=== PATIENT | female | born 1955 | race Caucasian/White ===

== ENCOUNTER 2016-06-09 09:59 | Outpatient (CLI) | payer MEDICAID | END 2016-06-09 10:00 | disposition home or self-care (01) | DX: Z71.3 Dietary counseling and surveillance (principal); E11.9 Type 2 diabetes mellitus without complications; E66.09 Other obesity due to excess calories; Z68.38 Body mass index [BMI] 38.0-38.9, adult ==

== ENCOUNTER 2016-06-20 19:53 | Outpatient (CLI) | payer MEDICAID ==
[2016-06-20 13:50] LABS: CHOL/HDL RATIO 2.9 (<4.4); CHOLESTEROL 134 mg/dL; HDL CHOLESTEROL 47 mg/dL; LDL/HDL RATIO 1.4 (<4.4); TRIGLYCERIDES 97 mg/dL; VLDL CHOLESTEROL 19 mg/dL
== END 2016-06-20 19:54 | disposition home or self-care (01) ==
LOC: LAB.WCP 19:53
PROVIDERS: ATTEND Internal Medicine Cardiovascular Disease
DX: E78.1 Pure hyperglyceridemia (principal); E55.9 Vitamin D deficiency, unspecified; E11.9 Type 2 diabetes mellitus without complications
CPT/HCPCS: 36415; 80061; 82306

== ENCOUNTER 2016-06-24 16:22 | Outpatient (CLI) | payer MEDICAID | END 2016-06-24 16:23 | disposition home or self-care (01) | DX: M16.11 Unilateral primary osteoarthritis, right hip (principal); Z91.81 History of falling ==

== ENCOUNTER 2016-06-27 13:17 | Emergency (ER) | payer MEDICAID ==
[2016-06-27] MEDS ORDERED: CHERRY SYRUP 10 ML UDC PO ONE (13:28)
[2016-06-27] MEDS ORDERED: DEXAMETHASONE 10 MG/ML VIAL ONE (13:28)
[2016-06-27] MEDS ORDERED: HYDROcod/ACETAM 5/325 MG TABLET PO STA (15:14)
[2016-06-27] MEDS ORDERED: HYDROcod/ACETAM 5/325 MG TABLET ONE (15:17)
== END 2016-06-27 15:19 | disposition home or self-care (01) ==
DX: M25.551 Pain in right hip (principal); W01.0XXA Fall on same level from slipping, tripping and stumbling without subsequent striking against object, initial encounter; M16.11 Unilateral primary osteoarthritis, right hip; M19.90 Unspecified osteoarthritis, unspecified site; K57.30 Diverticulosis of large intestine without perforation or abscess without bleeding; I11.0 Hypertensive heart disease with heart failure; I50.9 Heart failure, unspecified; E78.00 Pure hypercholesterolemia, unspecified; J44.9 Chronic obstructive pulmonary disease, unspecified; E11.9 Type 2 diabetes mellitus without complications; Z79.4 Long term (current) use of insulin; F17.200 Nicotine dependence, unspecified, uncomplicated
CPT/HCPCS: 73700; 99283; A9270

== ENCOUNTER 2016-07-30 15:12 | Outpatient (CLI) | payer MEDICAID | END 2016-07-30 15:13 | disposition critical access hospital (66) | DX: K08.89 Other specified disorders of teeth and supporting structures (principal) | CPT/HCPCS: A0425; A0429 ==

== ENCOUNTER 2016-07-30 15:30 | Emergency (ER) | payer MEDICAID | END 2016-07-30 16:02 | disposition home or self-care (01) | DX: K04.7 Periapical abscess without sinus (principal); K02.9 Dental caries, unspecified; I11.0 Hypertensive heart disease with heart failure; I50.9 Heart failure, unspecified; E11.9 Type 2 diabetes mellitus without complications; Z79.4 Long term (current) use of insulin; J44.9 Chronic obstructive pulmonary disease, unspecified; F17.200 Nicotine dependence, unspecified, uncomplicated ==

== ENCOUNTER 2016-09-05 09:32 | Outpatient (CLI) | payer MEDICAID | END 2016-09-05 09:33 | disposition home or self-care (01) | DX: E66.9 Obesity, unspecified (principal); E11.9 Type 2 diabetes mellitus without complications ==

== ENCOUNTER 2016-09-22 10:59 | Outpatient (CLI) | payer MEDICAID | END 2016-09-22 11:00 | disposition short-term general hospital (02) | DX: M25.551 Pain in right hip (principal); W06.XXXA Fall from bed, initial encounter; Y92.032 Bedroom in apartment as the place of occurrence of the external cause | CPT/HCPCS: A0425; A0429; A0888 ==

== ENCOUNTER 2016-11-11 14:23 | Outpatient (CLI) | payer MEDICAID ==
[2016-11-11 19:55] LABS: CALCIUM 9.3 mg/dL (8.5-10.3); CREATININE 0.7 mg/dL (0.4-1.0); POTASSIUM 3.6 mmol/L (3.5-5.0)
== END 2016-11-11 14:24 | disposition home or self-care (01) ==
LOC: LAB.N 14:23
PROVIDERS: ATTEND Family Medicine
DX: E11.65 Type 2 diabetes mellitus with hyperglycemia (principal)
CPT/HCPCS: 36415; 80048

== ENCOUNTER 2016-11-15 14:17 | Outpatient (CLI) | payer MEDICAID | END 2016-11-15 14:18 | disposition home or self-care (01) | LOC: SC 14:17 | PROVIDERS: ATTEND Specialist | DX: G47.8 Other sleep disorders (principal); R53.83 Other fatigue; R06.83 Snoring | CPT/HCPCS: 99205; 99212 ==

== ENCOUNTER 2016-12-07 09:03 | Outpatient (CLI) | payer MEDICAID ==
[2016-12-07 13:42] LABS: HEMOGLOBIN A1C 1.06 g/dL
== END 2016-12-07 09:04 ==
LOC: LAB.N 09:03
PROVIDERS: ATTEND Family Medicine
DX: E11.65 Type 2 diabetes mellitus with hyperglycemia (principal); Z79.4 Long term (current) use of insulin
CPT/HCPCS: 36415; 83036

== ENCOUNTER 2016-12-08 21:30 | Outpatient (CLI) | payer MEDICAID | END 2016-12-08 21:31 | disposition home or self-care (01) | LOC: SC 21:30 | PROVIDERS: ATTEND Specialist | DX: G47.33 Obstructive sleep apnea (adult) (pediatric) (principal); G47.61 Periodic limb movement disorder | CPT/HCPCS: 95810 ==

== ENCOUNTER 2016-12-27 14:16 | Outpatient (CLI) | payer MEDICAID | END 2016-12-27 14:17 | disposition home or self-care (01) | LOC: SC 14:16 | PROVIDERS: ATTEND Specialist | DX: G47.33 Obstructive sleep apnea (adult) (pediatric) (principal) | CPT/HCPCS: 99212; 99213 ==

== ENCOUNTER 2017-02-14 20:17 | Outpatient (CLI) | payer MEDICAID | END 2017-02-14 20:18 | disposition home or self-care (01) | LOC: SC 20:17 | PROVIDERS: ATTEND Specialist | DX: G47.33 Obstructive sleep apnea (adult) (pediatric) (principal); G47.61 Periodic limb movement disorder | CPT/HCPCS: 95811 ==

== ENCOUNTER 2017-02-21 15:22 | Outpatient (CLI) | payer MEDICAID | END 2017-02-21 15:23 | disposition home or self-care (01) | LOC: SC 15:22 | PROVIDERS: ATTEND Nurse Practitioner Family | DX: G47.33 Obstructive sleep apnea (adult) (pediatric) (principal); R09.02 Hypoxemia; G47.61 Periodic limb movement disorder; I49.8 Other specified cardiac arrhythmias | CPT/HCPCS: 99212; 99214 ==

== ENCOUNTER 2017-05-10 09:02 | Outpatient (CLI) | payer MEDICAID ==
[2017-05-10 14:04] LABS: CREATININE 0.7 mg/dL (0.4-1.0)
[2017-05-10 16:38] LABS: HB2 TOTAL 14.7 g/dL; HEMOGLOBIN A1C 1.06 g/dL; HEMOGLOBIN A1C % 8.7 % (4.6-6.2)
== END 2017-05-10 09:03 | disposition home or self-care (01) ==
LOC: LAB.N 09:02
PROVIDERS: ATTEND Family Medicine
DX: E11.65 Type 2 diabetes mellitus with hyperglycemia (principal); Z79.4 Long term (current) use of insulin; Z79.84 Long term (current) use of oral hypoglycemic drugs
CPT/HCPCS: 36415; 80048; 83036

== ENCOUNTER 2017-07-24 13:38 | Outpatient (CLI) | payer MEDICAID | END 2017-07-24 13:39 | disposition home or self-care (01) | LOC: SC 13:38 | PROVIDERS: ATTEND Nurse Practitioner Family | DX: G47.33 Obstructive sleep apnea (adult) (pediatric) (principal); G47.23 Circadian rhythm sleep disorder, irregular sleep wake type | CPT/HCPCS: 99212; 99214 ==

== ENCOUNTER 2017-09-05 13:47 | Outpatient (CLI) | payer MEDICAID | END 2017-09-05 13:48 | disposition home or self-care (01) | LOC: SC 13:47 | PROVIDERS: ATTEND Nurse Practitioner Family | DX: G47.33 Obstructive sleep apnea (adult) (pediatric) (principal) | CPT/HCPCS: 99212; 99214 ==

== ENCOUNTER 2017-09-26 08:00 | Outpatient (CLI) | payer MEDICAID ==
[2017-09-26 19:24] LABS: CALCIUM 8.8 mg/dL (8.5-10.3); CREATININE 0.7 mg/dL (0.4-1.0)
[2017-09-26 20:17] LABS: HB2 TOTAL 13.8 g/dL; HEMOGLOBIN A1C 1.03 g/dL
== END 2017-09-26 08:01 | disposition home or self-care (01) ==
LOC: LAB.N 08:00
PROVIDERS: ATTEND Family Medicine
DX: E11.9 Type 2 diabetes mellitus without complications (principal); Z79.4 Long term (current) use of insulin
CPT/HCPCS: 36415; 80048; 83036

== ENCOUNTER 2018-01-17 08:00 | Outpatient (CLI) | payer MEDICAID ==
[2018-01-17 12:24] LABS: CALCIUM 9.1 mg/dL (8.5-10.3); CREATININE 0.8 mg/dL (0.4-1.0)
[2018-01-17 12:43] LABS: HEMOGLOBIN A1C 1.16 g/dL; HEMOGLOBIN A1C % 10.3 % (4.6-6.2)
== END 2018-01-17 08:01 | disposition home or self-care (01) ==
LOC: LAB.R 08:00
PROVIDERS: ATTEND Family Medicine
DX: E11.9 Type 2 diabetes mellitus without complications (principal); Z79.4 Long term (current) use of insulin
CPT/HCPCS: 36415; 80048; 83036

== ENCOUNTER 2018-05-11 09:18 | Outpatient (CLI) | payer MEDICAID ==
[2018-05-11 15:16] LABS: ALBUMIN 3.9 g/dL (3.2-5.5); ALBUMIN/GLOBULIN RATIO 1.1 (1.0-2.2); ALKALINE PHOSPHATASE 105 IU/L (42-121); ALT ALANINE AMINOTRANSFERASE 27 IU/L (10-60); AST ASPARTATE AMINOTRANSFERASE 18 IU/L (10-42); BILIRUBIN,TOTAL 0.5 mg/dL (0.2-1.0); BUN - BLOOD UREA NITROGEN 13 mg/dL (6-20); CALCIUM 9.1 mg/dL (8.5-10.3); CARBON DIOXIDE - CO2 26 mmol/L (21-32); CHLORIDE 100 mmol/L (101-111); CHOL/HDL RATIO 3.5 (<4.4); CHOLESTEROL 142 mg/dL; CREATININE 0.7 mg/dL (0.4-1.0); GFR - MDRD 85 (>89); GLUCOSE 211 mg/dL (70-100); HDL CHOLESTEROL 41 mg/dL; LDL CHOLESTEROL,CALCULATED 78 mg/dL; LDL/HDL RATIO 1.9 (<4.4); SODIUM 136 mmol/L (135-145); TOTAL PROTEIN 7.5 g/dL (6.7-8.2); VLDL CHOLESTEROL 23 mg/dL
[2018-05-11 15:21] LABS: HB2 TOTAL 14.3 g/dL; HEMOGLOBIN A1C 1.27 g/dL; HEMOGLOBIN A1C % 10.3 % (4.6-6.2)
== END 2018-05-11 23:59 | disposition home or self-care (01) ==
LOC: LAB.N 09:18
PROVIDERS: ATTEND Nurse Practitioner Gerontology
DX: I10 Essential (primary) hypertension (principal); R94.5 Abnormal results of liver function studies; E11.65 Type 2 diabetes mellitus with hyperglycemia; Z79.4 Long term (current) use of insulin
CPT/HCPCS: 36415; 80053; 80061; 83036; 83721

== ENCOUNTER 2018-07-03 14:53 | Outpatient (CLI) | payer MEDICAID | END 2018-07-03 14:54 | disposition home or self-care (01) | LOC: SC 14:53 | PROVIDERS: ATTEND Nurse Practitioner Family | DX: G47.33 Obstructive sleep apnea (adult) (pediatric) (principal) | CPT/HCPCS: 99212; 99214 ==

== ENCOUNTER 2018-10-02 14:10 | Outpatient (CLI) | payer MEDICAID | END 2018-10-02 14:11 | disposition home or self-care (01) | LOC: SC 14:10 | PROVIDERS: ATTEND Nurse Practitioner Family | DX: G47.33 Obstructive sleep apnea (adult) (pediatric) (principal) | CPT/HCPCS: 99212; 99214 ==

== ENCOUNTER 2018-10-15 08:00 | Outpatient (CLI) | payer MEDICAID ==
[2018-10-15 12:20] LABS: ALBUMIN 3.7 g/dL (3.2-5.5); ALKALINE PHOSPHATASE 86 IU/L (42-121); ALT ALANINE AMINOTRANSFERASE 21 IU/L (10-60); AST ASPARTATE AMINOTRANSFERASE 18 IU/L (10-42); BILIRUBIN,TOTAL 0.6 mg/dL (0.2-1.0); BUN - BLOOD UREA NITROGEN 14 mg/dL (6-20); CALCIUM 9.1 mg/dL (8.5-10.3); CARBON DIOXIDE - CO2 27 mmol/L (21-32); CHLORIDE 104 mmol/L (101-111); CHOLESTEROL 129 mg/dL; CREATININE 0.8 mg/dL (0.4-1.0); GFR - MDRD 73 (>89); GLUCOSE 86 mg/dL (70-100); HDL CHOLESTEROL 43 mg/dL; LDL CHOLESTEROL,CALCULATED 67 mg/dL; LDL/HDL RATIO 1.6 (<4.4); SODIUM 142 mmol/L (135-145); TOTAL PROTEIN 7.4 g/dL (6.7-8.2); VLDL CHOLESTEROL 19 mg/dL
[2018-10-15 12:23] LABS: HB2 TOTAL 13.7 g/dL; HEMOGLOBIN A1C 0.95 g/dL; HEMOGLOBIN A1C % 8.5 % (4.6-6.2)
[2018-10-15 12:49] LABS: BASOPHILS # (AUTO) 0.1 10^3/uL (0.0-0.1); BASOPHILS % (AUTO) 1.3 %; EOSINOPHILS # (AUTO) 0.2 10^3/uL (0.0-0.7); HGB - HEMOGLOBIN 12.8 g/dL (12.0-16.0); LYMPHOCYTES % (AUTO) 24.5 %; MEAN CORPUSCULAR HEMOGLOBIN 29.6 pg (27.0-31.0); MEAN CORPUSCULAR VOLUME 89.4 fL (81.0-99.0); MEAN PLATELET VOLUME 8.3 fL (7.9-10.8); MONOCYTES # (AUTO) 0.6 10^3/uL (0.0-1.0); MONOCYTES % (AUTO) 7.4 %; NEUTROPHILS # (AUTO) 5.1 10^3/uL (1.5-6.6); NEUTROPHILS % (AUTO) 63.8 %; PLT - PLATELET COUNT 307 10^3/uL (130-450); RED BLOOD COUNT 4.32 10^6/uL (4.20-5.40); RED CELL DISTRIBUTION WIDTH 14.2 % (12.0-15.0); WHITE BLOOD COUNT 8.1 x10^3/uL (4.8-10.8)
== END 2018-10-15 23:59 | disposition home or self-care (01) ==
LOC: LAB.N 08:00
PROVIDERS: ATTEND Nurse Practitioner Gerontology
DX: I10 Essential (primary) hypertension (principal); E11.65 Type 2 diabetes mellitus with hyperglycemia; I50.9 Heart failure, unspecified; Z79.4 Long term (current) use of insulin
CPT/HCPCS: 36415; 80053; 80061; 83036; 83721; 85025; 86480

== ENCOUNTER 2018-11-14 14:32 | Outpatient (CLI) | payer MEDICAID | END 2018-11-14 14:33 | disposition home or self-care (01) | LOC: SC 14:32 | PROVIDERS: ATTEND Nurse Practitioner Family | DX: G47.33 Obstructive sleep apnea (adult) (pediatric) (principal) | CPT/HCPCS: 99212; 99214 ==

== ENCOUNTER 2019-01-16 14:31 | Outpatient (CLI) | payer MEDICAID ==
[2019-01-16 15:31] VITALS: BP 110/60
--- NOTE | 2019-01-16 15:31 | SLEEP CARE CONSULTATION ---
Information from patient questionnaire entered by Zoey Pillai. I have reviewed and concur with the information entered by Zoey Pillai. This document represents the service I personally performed and the decisions made by me, Mirtha Osman, RN, MSN, [employer]. History of Present Illness Previous diagnosis: Mild, Obstructive Sleep Apnea-Hypopnea Syndrome AHI: 7.6 Reason for CPAP/BiPAP follow up: other (2 MONTH FOLLOW UP) Equipment type: CPAP Equipment obtained from: [facility] Mask style: Nasal (wisp) Mask brand: Respironics Backup mask available: Yes Last cushion change: a few months Prior sleep studies: Yes Year and Where: 2016 [facility] additional information: Scheduled February 19 is right total hip. She is aware to take her CPAP for recovery and overnight use. The oxygen concentrator is not working the past 2 days and is beeping. She obtained the adaptor for her to use the oxygen with her CPAP as planned at last visit. She did feel more refreshed in the morning without fogginess with use of oxygen. CPAP Compliance Data - Data Reviewed with Patient Average duration of nightly device use: 7H 4M Compliance rate %: 80.0 Current pressure setting (cmH2O): 11-15 Humidity settin Heated hose settin Average residual AHI: 3 Subjective Missed days of use due to: reports: other (falling asleep without CPAP. ) Patient concerns: reports: other (irritation of face from CPAP mask. but also several other areas of erythema on chin corner of mouth and eye brow. She has been picking and red today. States has been there for years. ). denies: aeropha ann-marie, mask discomfort, air blowing in eyes, mask leak noise, condensation in mask/hose, nasal congestion, dry mouth, nose, throat, epistaxis Observed to snore while using device: No Current pressure setting perceived as: comfortable On therapy, patient: reports: sleeping better, awakening more refreshed, being more awake and alert during the day, more rested overall. denies: drowsiness while driving (does not drive, uses para transit. ) Initial [place] Sleepiness Scale score: 6 Current [place] Sleepiness Scale score: 11 Allergies and Home Medications Known drug allergies: No Home medication list reviewed: Yes Allergy and home medication list: Medication Name (generic/name brand) Strength & Dosage Humalog 100 unit/ml SQ Solution Inject 7 units TID w/meals and SS Atorvastatin Calcium 40mg tab one daily at bedtime Ozempic Inject once weekly as directed DuoNeb 0.5mg-3mg Inhalation Solution One vial via nebulizer q4hour as needed Lantus 100 unit/ml SQ Solution Inject 15 units daily at bedtime Lasix (Furosemide) 40mg tab one daily Lisinopril 2.5mg tab one daily Ventolin HFA 90MCG Inhale 2 puff q4hrs PRN Tussin D 100mg-10 Take 5ml q4hrs PRN Tylenol Extra Strength 500mg tab one q8hrs PRN Allergy List Nickel Review of Systems Review of systems same as previous: No (skin irritation from papules and then scatching face. ) Physical Exam Blood Pressure: 110/60 Heart Rate: 84 O2 Saturation: 97 Weight (kg): 188 lb 6.4 oz Impression and Plan 1. Obstructive Sleep Apnea-Hypopnea Syndrome, mild, with good treatment compliance and good apnea control. On CPAP therapy, the patient has better sleep quality and is more rested overall. To prevent falling asleep without CPAP she is to put on her CPAP as soon as tired in evening. Meaning that she is to put on her CPAP before getting into bed. For her oxygen concentrator malfunction, I will order for it to be checked and have my utilization coordinator contact [facility]. In addition, a method needs to be figured out how patient can obtain supplies since she depends on transit. I gave her a supply replacement list so she can date when she receives supplies. She is reminded to take her CPAP to surgery with rationale. Patient's apnea severity and rationale for treatment to reduce apnea, improve sleep quality and reduce cardiovascular and cerebrovascular events was reviewed. I also reviewed the benefit of consistent device use of CPAP for hypertension, diabetes. 2. Skin irritation, several small areas of excoriated skin , pink, non draining macular appearance about mouth, chin, cheek and eyebrow. These start out as pimples the patient reporst that she then picks. She states irritated skin areas sting and burn. I advised her to stop picking and gave alcohol swabs for her to to clean and warned of infection if continues picking. Samples of [place] Ease cream given to use until she can see her PCP. She tried in office and stated it made excoriated areas feel better. Thus she was instructed to keep hands off of face unless she is puttin the cream with clean hands instead. * Continue CPAP pressure at 11-15 cmH2O * Check oxygen concentrator for malfunction. * Update supplies * Notify me if snoring with mask or feeling that the pressure is too much or too little * Attempt to lose weight * Follow up with PCP in regard to skin irritation. * Return for follow up in 6 months , or sooner if concerns arise I spent 100% of this 30 minute visit face to face with the patient with greater than 50% of this was spent time counseling the patient and coordination of care.
== END 2019-01-16 14:32 | disposition home or self-care (01) ==
LOC: SC 14:31
PROVIDERS: ATTEND Nurse Practitioner Family
DX: G47.33 Obstructive sleep apnea (adult) (pediatric) (principal); L98.8 Other specified disorders of the skin and subcutaneous tissue
CPT/HCPCS: 99212; 99214

== ENCOUNTER 2019-03-04 15:41 | Outpatient (CLI) | payer MEDICAID | END 2019-03-04 15:42 | disposition critical access hospital (66) | LOC: EMS 15:41 | PROVIDERS: ATTEND Surgery | DX: M25.551 Pain in right hip (principal); Z96.641 Presence of right artificial hip joint | CPT/HCPCS: A0425; A0429; A0999 ==

== ENCOUNTER 2019-03-04 16:01 | Emergency (ER) | payer MEDICAID ==
[2019-03-04 16:11] VITALS: BP 110/84
--- NOTE | 2019-03-04 19:07 | ED Physician Documentation ---
History of Present Illness - Stated complaint Stated Complaint: R HIP PX - Chief complaint Chief Complaint: Ext Problem PD PAST MEDICAL HISTORY - Past Medical History Past Medical History: Yes Cardiovascular: Congestive heart failure, Hypertension, High cholesterol Respiratory: COPD Neuro: None Endocrine/Autoimmune: Type 2 diabetes GI: None CAMPAIGN MANAGER: None : None HEENT: None Psych: Depression Musculoskeletal: Osteoarthritis, Other Derm: None - Past Surgical History Past Surgical History: Yes General: Other Ortho: Hip replacement /CAMPAIGN MANAGER: Other - Present Medications Home Medications: Ambulatory Orders Medication Instructions Recorded Confirmed Albuterol Sulfate [Proair Hfa] 1 - 2 puffs IH Q4H PRN 12/11/15 08/29/16 Atorvastatin Calcium [Lipitor] 40 mg PO DAILY 12/11/15 08/29/16 Furosemide [Lasix] 40 mg PO DAILY #20 tablet 01/02/16 08/29/16 Insulin Glargine,Hum.rec.anlog 10 units SUBQ QPM 01/02/16 08/29/16 [Lantus] Carvedilol 6.25 mg PO BID 04/14/16 08/29/16 Duloxetine HCl 30 mg PO DAILY 04/14/16 08/29/16 Lisinopril 2.5 mg PO DAILY 04/14/16 08/29/16 Insulin Glulisine [Apidra] 5 units SQ TID 07/30/16 08/29/16 Acetaminophen [Tylenol] 650 mg PO Q6H PRN 08/29/16 08/29/16 Ipratropium/Albuterol [Duoneb] 3 ml INH Q6H PRN 08/29/16 08/29/16 Methocarbamol 500 mg PO BID PRN 08/29/16 08/29/16 - Allergies Allergies/Adverse Reactions: Allergies Allergy/AdvReac Type Severity Reaction Status Date / Time No Known Drug Allergies Allergy Verified 01/02/16 08:25 - Social History Does the pt smoke?: Yes Smoking Status: Current every day smoker Does the pt drink ETOH?: No Does the pt have substance abuse?: No - Immunizations Immunizations are current?: Yes - POLST Patient has POLST: No Results - Vitals Vitals: Vital Signs - 24 hr 03/04/19 16:06 Temperature 36.5 C Heart Rate 72 Respiratory 18 Rate Blood Pressure 110/84 H O2 Saturation 95 Oxygen O2 Source Room air Departure - Departure Disposition: ED Left Without Being Seen Discharge Date/Time: 03/04/19 19:06
--- NOTE | 2019-03-05 00:36 | ED Physician Documentation ---
ED Addendum - Addendum Addendum: Patient eloped prior to my assessment. I did not evaluate this patient. 03/05/19 00:35
== END 2019-03-04 19:06 | disposition left against medical advice (07) ==
LOC: EDUNIT# → ED 16:01
DX: Z53.21 Procedure and treatment not carried out due to patient leaving prior to being seen by health care provider (principal)